=== PATIENT | female | born 2000 | race Caucasian/White ===

== ENCOUNTER 2022-08-05 22:19 | Emergency (ER) | payer MEDICAID ==
[~2022-08-05] VITALS: Ht 157.5 cm; Wt 77.3 kg
[~2022-08-05 22:19] MED LIST: CEPH-585 PO; DICY10CA18 PO; FAMO20TA8 PO; LOSA25TA41 PO; OMEP20TA43 PO; VENL150C4 PO
[2022-08-06 00:09] LABS: BASOPHILS # (AUTO) 0.1 X10'3 (0-0.2); BASOPHILS % (AUTO) 0.6 % (0-1); EOSINOPHILS # (AUTO) 0.2 X10'3 (0-0.9); EOSINOPHILS % (AUTO) 2.1 % (0-6); HEMATOCRIT 39.8 % (35.0-45.0); HEMOGLOBIN 13.7 g/dl (12.0-16.0); LYMPHOCYTES # (AUTO) 3.8 X10'3 (1.1-4.8); LYMPHOCYTES % (AUTO) 43.3 % (21-51); MEAN CORPUSCULAR HEMOGLOBIN 28.2 PG (27.0-31.0); MEAN CORPUSCULAR HGB CONC 34.3 g/dL (33.0-36.5); MEAN CORPUSCULAR VOLUME 82.3 FL (78-98); MEAN PLATELET VOLUME 7.4 FL (7.4-10.4); MONOCYTES # (AUTO) 0.7 X10'3 (0-0.9); MONOCYTES % (AUTO) 8.2 % (2-12); NEUTROPHILS % (AUTO) 45.8 % (42-75); PLATELET COUNT 318 X10'3 (140-440); RED BLOOD COUNT 4.84 X10'6 (4.20-5.60); RED CELL DISTRIBUTION WIDTH 13.7 % (11.5-14.5); WHITE BLOOD COUNT 8.8 X10'3 (4.5-11.0)
[2022-08-06 00:28] LABS: ALANINE AMINOTRANSFERASE 31 U/L (12-78); ALBUMIN 3.8 G/DL (3.4-5.0); ALKALINE PHOSPHATASE 69 IU/L (46-116); ANION GAP 8 (8-16); ASPARTATE AMINO TRANSFERASE 18 U/L (10-37); BILIRUBIN,TOTAL 0.1 MG/DL (0.1-1.0); BLOOD UREA NITROGEN 7 MG/DL (7-18); BUN/CREATININE RATIO 8.3 (6.6-38.0); CALCIUM 9.2 MG/DL (8.5-10.1); CHLORIDE 103 MMOL/L (99-107); CREATININE 0.84 MG/DL (0.40-0.90); GLUCOSE 86 MG/DL (70-104); LIPASE 118 U/L (73-393); POTASSIUM 3.5 MMOL/L (3.5-5.1); SODIUM 138 MMOL/L (135-145); TOTAL PROTEIN 7.7 G/DL (6.4-8.2); eGFR 85 ML/MIN
[2022-08-06] MEDS ORDERED: normal saline 1000ml 1,000 ML IV ONE (03:40)
[2022-08-06] MEDS ORDERED: iohexol 350MG/ML 100ml bottle IV ONE (03:53)
[2022-08-06] MEDS ORDERED: ketorolac trometh. 30mg/ml inj. IV ONE (03:55)
[2022-08-06] MEDS ORDERED: SUMAtriptan succ. 6 MG/0.5ml vial SQ ONE (03:55)
[2022-08-06 04:16] LABS: BETA HCG,QUANTITATIVE < 1.0 mIU/ml
[2022-08-06 08:37] VITALS: BP 116/82
== END 2022-08-06 08:41 | disposition still patient (30) ==
LOC: ER 22:20
DX: R10.9 Unspecified abdominal pain (principal); R11.0 Nausea; M54.9 Dorsalgia, unspecified; R51.9 Headache, unspecified; Z79.899 Other long term (current) drug therapy
CPT/HCPCS: 36415; 71275; 74174; 80053; 83690; 84702; 85025; 96361; 96372; 96374; 99285; J1885; J3030; J3490; J7030; Q9967; A6258

== ENCOUNTER 2022-12-19 22:22 | Emergency (ER) | payer MEDICAID ==
[~2022-12-19] VITALS: Ht 157.5 cm; Wt 77.3 kg
[~2022-12-19 22:22] MED LIST changes: -CEPH-585 PO
[2022-12-19 22:28] VITALS: BP 120/93
[2022-12-20] MEDS ORDERED: triamcinolone acetonide 40mg/ml inj IM ONE (00:20)
[2022-12-20] MEDS ORDERED: predniSONE 20 mg tablet PO ONE (00:20)
== END 2022-12-20 00:36 | disposition home or self-care (01) ==
LOC: ER 22:23
DX: L23.9 Allergic contact dermatitis, unspecified cause (principal); G43.909 Migraine, unspecified, not intractable, without status migrainosus; Z79.899 Other long term (current) drug therapy
CPT/HCPCS: 96372; 99283; J3301; J7512

== ENCOUNTER 2023-02-16 12:01 | Emergency (ER) | payer MEDICAID ==
[~2023-02-16] VITALS: Ht 157.5 cm; Wt 80.4 kg
[2023-02-16 12:24] VITALS: BP 114/83; PULSE 99; RESP 16; TEMP 99; O2SAT 99
[2023-02-16 12:44] LABS: CLARITY,URINE CLOUDY (Clear); COLOR,URINE YELLOW (Yellow); GLUCOSE, URINE NEGATIVE (Neg); KETONES,URINE NEGATIVE (Neg); LEUKOCYTE ESTERASE ,URINE TRACE (Neg); NITRITES, URINE NEGATIVE (Neg); OCCULT BLOOD,URINE NEGATIVE (Neg); PH,URINE 5.5 (4.8-8.0); PROTEIN,URINE NEGATIVE (Neg); URINE HCG NEGATIVE (NEG); UROBILINOGEN,URINE 0.2 E.U/dL (0.2-1.0)
[2023-02-16 12:48] LABS: UA COLLECTION TYPE CLN CATCH MIDSTREAM
[2023-02-16 12:50] LABS: MUCUS STRANDS FEW /LPF (Neg); SQUAMOUS EPITHELIAL CELL,UR MODERATE /LPF (FEW)
[2023-02-16 12:51] LABS: BACTERIA,URINE 1+ /HPF (Neg); HYALINE CASTS 0-3 /LPF (NEGATIVE); RBC,URINE 0-2 /HPF (0-2); WBC CLUMPS,URINE FEW /HPF (NEGATIVE); WBC,URINE 20-30 /HPF (0-4)
[2023-02-16] MEDS ORDERED: LIDOcaine Viscous 15ml cup MM STA (14:14)
== END 2023-02-16 14:35 | disposition home or self-care (01) ==
LOC: ER 12:02
DX: K12.0 Recurrent oral aphthae (principal); G43.909 Migraine, unspecified, not intractable, without status migrainosus; Z98.890 Other specified postprocedural states; Z79.2 Long term (current) use of antibiotics; Z79.899 Other long term (current) drug therapy; K59.09 Other constipation
CPT/HCPCS: 69200; 81001; 81025; 87088; 99283; 99284

== ENCOUNTER 2023-04-21 17:38 | Emergency (ER) | payer MEDICAID ==
[~2023-04-21] VITALS: Ht 157.5 cm; Wt 84.6 kg
[2023-04-21 17:57] VITALS: TEMP 98.3
[2023-04-21 18:20] LABS: URINE HCG NEGATIVE (NEG)
[2023-04-21 18:25] LABS: BILIRUBIN,URINE NEGATIVE (Neg); CLARITY,URINE SLIGHTLY CLOUDY (Clear); COLOR,URINE YELLOW (Yellow); GLUCOSE, URINE NEGATIVE (Neg); KETONES,URINE NEGATIVE (Neg); LEUKOCYTE ESTERASE ,URINE NEGATIVE (Neg); NITRITES, URINE NEGATIVE (Neg); OCCULT BLOOD,URINE NEGATIVE (Neg); PROTEIN,URINE NEGATIVE (Neg); UROBILINOGEN,URINE 0.2 E.U/dL (0.2-1.0)
[2023-04-21 18:39] LABS: UA COLLECTION TYPE CLN CATCH MIDSTREAM
[2023-04-21 18:40] LABS: WBC,URINE 0-4 /HPF (0-4)
[2023-04-21 18:41] LABS: BACTERIA,URINE 1+ /HPF (Neg); MUCUS STRANDS FEW /LPF (Neg); RBC,URINE 0-2 /HPF (0-2); SQUAMOUS EPITHELIAL CELL,UR FEW /LPF (FEW)
[2023-04-21 19:00] LABS: BASOPHILS # (AUTO) 0.1 X10'3 (0-0.2); BASOPHILS % (AUTO) 0.8 % (0-1); EOSINOPHILS # (AUTO) 0.4 X10'3 (0-0.9); EOSINOPHILS % (AUTO) 4.4 % (0-6); HEMATOCRIT 42.9 % (35.0-45.0); HEMOGLOBIN 14.4 g/dl (12.0-16.0); LYMPHOCYTES # (AUTO) 3.6 X10'3 (1.1-4.8); LYMPHOCYTES % (AUTO) 40.5 % (21-51); MEAN CORPUSCULAR HEMOGLOBIN 28.9 PG (27.0-31.0); MEAN CORPUSCULAR HGB CONC 33.6 g/dL (33.0-36.5); MEAN PLATELET VOLUME 7.9 FL (7.4-10.4); MONOCYTES # (AUTO) 0.6 X10'3 (0-0.9); MONOCYTES % (AUTO) 7.3 % (2-12); NEUTROPHILS # (AUTO) 4.2 X10'3 (1.8-7.7); PLATELET COUNT 289 X10'3 (140-440); RED BLOOD COUNT 4.98 X10'6 (4.20-5.60); RED CELL DISTRIBUTION WIDTH 13.5 % (11.5-14.5); WHITE BLOOD COUNT 8.9 X10'3 (4.5-11.0)
[2023-04-21 19:18] LABS: ALANINE AMINOTRANSFERASE 16 U/L (12-78); ALKALINE PHOSPHATASE 70 IU/L (46-116); ANION GAP 11 (8-16); ASPARTATE AMINO TRANSFERASE 24 U/L (10-37); BILIRUBIN,TOTAL 0.1 MG/DL (0.1-1.0); CHLORIDE 105 MMOL/L (99-107); GLUCOSE 88 MG/DL (70-104); POTASSIUM 3.4 MMOL/L (3.5-5.1); SODIUM 137 MMOL/L (135-145); TOTAL CARBON DIOXIDE 21.2 MMOL/L (24-32); TOTAL PROTEIN 7.7 G/DL (6.4-8.2)
[2023-04-21 19:27] LABS: ALBUMIN 3.7 G/DL (3.4-5.0); ALBUMIN/GLOBULIN RATIO 0.9 (1.1-1.5); BLOOD UREA NITROGEN 11 MG/DL (7-18); BUN/CREATININE RATIO 15.7 (10.0-20.0); CALCIUM 8.9 MG/DL (8.5-10.1); eCRCL 99 ML/MIN; eGFR > 90 ML/MIN
[2023-04-21] MEDS ORDERED: acetaminophen 325mg tablet PO ONE (23:55)
[2023-04-21] MEDS ORDERED: ketorolac trometh. 30mg/ml inj. IV ONE (23:55)
[2023-04-21] MEDS ORDERED: ondansetron 4mg rapidly disintigrating tab PO ONE (23:55)
[2023-04-21] MEDS ORDERED: dicyclomine 10mg/ml 2ml ampule IM ONE (23:55)
[2023-04-21] MEDS ORDERED: potassium Cl 20 mEq SR tablet PO STA (23:58)
[2023-04-22] MEDS ORDERED: ONDA8TAB13 PO (01:05)
[2023-04-22] MEDS ORDERED: DICY10CA88 PO (01:05)
[2023-04-22 01:30] VITALS: BP 107/61; PULSE 80; RESP 16; O2SAT 97
== END 2023-04-22 01:50 | disposition home or self-care (01) ==
LOC: ER 17:39
DX: G89.29 Other chronic pain (principal); R10.9 Unspecified abdominal pain; K59.00 Constipation, unspecified; G43.909 Migraine, unspecified, not intractable, without status migrainosus; Z79.899 Other long term (current) drug therapy
CPT/HCPCS: 36415; 80053; 81001; 81025; 83690; 85025; 96372; 96374; 99284; J0500; J1885; J7030; A6250

== ENCOUNTER 2024-05-07 05:44 | Day surgery (SDC) | payer BC, MEDICAID ==
[2024-04-30 14:37] LABS: BASOPHILS % (AUTO) 0.5 % (0-1); EOSINOPHILS # (AUTO) 0.1 X10'3 (0-0.9); EOSINOPHILS % (AUTO) 1.9 % (0-6); LYMPHOCYTES # (AUTO) 2.8 X10'3 (1.1-4.8); LYMPHOCYTES % (AUTO) 38.3 % (21-51); MEAN CORPUSCULAR HEMOGLOBIN 28.8 PG (27.0-31.0); MEAN CORPUSCULAR HGB CONC 33.6 g/dL (33.0-36.5); MEAN CORPUSCULAR VOLUME 85.8 FL (78-98); MEAN PLATELET VOLUME 7.5 FL (7.4-10.4); MONOCYTES # (AUTO) 0.5 X10'3 (0-0.9); MONOCYTES % (AUTO) 7.3 % (2-12); NEUTROPHILS # (AUTO) 3.8 X10'3 (1.8-7.7); PRE OP HEMATOCRIT 42.6 % (35.0-45.0); PRE OP HEMOGLOBIN 14.3 g/dL (12.0-16.0); PRE OP PLATELET COUNT 311 X10'3 (140-440); PRE OP WHITE BLOOD COUNT 7.3 10'3 (4.8-10.8); RED BLOOD COUNT 4.96 X10'6 (4.20-5.60); RED CELL DISTRIBUTION WIDTH 13.8 % (11.5-14.5)
[2024-04-30 14:59] LABS: ALBUMIN 3.8 G/DL (3.4-5.0); ALKALINE PHOSPHATASE 64 IU/L (46-116); BLOOD UREA NITROGEN 11 MG/DL (7-18); CALCIUM 9.1 MG/DL (8.5-10.1); PRE OP ALT 13 U/L (30-65); PRE OP AST 12 U/L (10-37)
[2024-04-30 15:04] LABS: ALBUMIN/GLOBULIN RATIO 0.9 (1.1-1.5); BUN/CREATININE RATIO 15.3 (10.0-20.0); CHLORIDE 103 MMOL/L (99-107); CREATININE 0.72 MG/DL (0.40-0.90); PRE OP ANION GAP 4 (8-16); PRE OP BILIRUB, TOTAL 0.3 MG/DL (0.0-1.0); PRE OP GLUCOSE 82 MG/DL (70-104); PRE OP POTASSIUM 4.1 MMOL/L (3.4-5.1); PRE OP SODIUM 136 MMOL/L (135-145); TOTAL CARBON DIOXIDE 28.6 MMOL/L (24-32); eGFR > 90 ML/MIN
[2024-04-30 15:42] LABS: HCG SERUM QL NEGATIVE
[~2024-05-07] VITALS: Ht 157.5 cm; Wt 77.6 kg
[2024-05-07] VITALS (17 sets, daily range): BP systolic 86–118; BP diastolic 60–81; PULSE 75–97; RESP 14–21; TEMP 98.2; O2SAT 94–100
[~2024-05-07 05:44] MED LIST changes: +ATEN25TA PO; +CETI10TA14 PO; -DICY10CA18 PO; -FAMO20TA8 PO; -LOSA25TA41 PO; +MODA200T48 PO; -OMEP20TA43 PO; +PANT40TA54 PO; +PRUC2TAB PO; -VENL150C4 PO; +VENL150C5 PO
[2024-05-07] MEDS ORDERED: LIDOcaine 1% (10mg/ml) 2ml vial ONE (06:24)
[2024-05-07] MEDS: famotidine 20mg tablet PO ONE (06:32)
[2024-05-07] MEDS: DOCUMENT DATE & TIME OF BETA-BLOCKER PO ONE (06:33)
[2024-05-07] MEDS: ringers solution, lacted 1,000 ML IV SCH (06:33)
[2024-05-07] MEDS: acetaminophen 325mg tablet PO ONE (06:33)
[2024-05-07] MEDS ORDERED: methylene blue (5mg/ml) 50mg/10ml ampul IV ONE (06:52)
[2024-05-07] MEDS ORDERED: BUPIVAcaine 2.5mg/ml inj 50ml vial (contains preservative) ONE (06:52)
[2024-05-07] MEDS ORDERED: ROPIVAcaine 0.5% (5mg/ml) 30ml vial ONE (06:52)
[2024-05-07] MEDS ORDERED: propofol inj 20 ML IV ONE (07:31)
[2024-05-07] MEDS ORDERED: midazolam 1 mg/ML 2ml injection ONE (07:31)
[2024-05-07] MEDS ORDERED: fentaNYL/PF 50MCG/1 ML 2ML syringe ONE ×2 (07:31→09:09)
[2024-05-07] MEDS ORDERED: rocuronium 10mg/ml inj IV ONE (07:32)
[2024-05-07] MEDS ORDERED: sevoflurane 250ml liquid IH ONE (07:59)
[2024-05-07 08:40] LABS: PREOP URINE HCG NEGATIVE (NEGATIVE)
[2024-05-07] MEDS ORDERED: dexamethasone sod phosphate 4mg/ml inj. ONE (08:57)
[2024-05-07] MEDS: BUPIVAcaine 2.5mg/ml inj 50ml vial (contains preservative) SQ ONE (09:13)
[2024-05-07] MEDS: ROPIVAcaine 0.5% (5mg/ml) 30ml vial IJ ONE (09:34)
[2024-05-07] MEDS: methylene blue (5mg/ml) 50mg/10ml ampul IV ONE (09:34)
[2024-05-07] MEDS ORDERED: ondansetron/PF 4mg/2ml inj ONE (09:39)
[2024-05-07] MEDS ORDERED: sugammadex 200mg/2ml injection IV ONE (09:44)
[2024-05-07] MEDS ORDERED: acetaminophen 1,000mg/100ml IV 100 ML IV ONE (09:53)
[2024-05-07] MEDS ORDERED: ondansetron/PF 4mg/2ml inj IV PRN (10:05)
[2024-05-07] MEDS ORDERED: morphine 4 MG/ML inj SYRINge IV PRN (10:05)
[2024-05-07] MEDS ORDERED: proCHLORperazine 10 MG/2 ml inj IV PRN (10:05)
[2024-05-07] MEDS ORDERED: ringers solution, lacted 1,000 ML IV SCH (10:05)
[2024-05-07] MEDS ORDERED: morphine 2 MG/ML inj. syringe IV PRN (10:05)
[2024-05-07] MEDS ORDERED: meperidine/PF 25mg/ml syringe IV PRN ×2 (10:05)
[2024-05-07] MEDS: ketorolac trometh 30MG/ML vial 30 MG/ML VIAL IV ONE (10:26)
[2024-05-07] MEDS: meperidine/PF 25mg/ml syringe IV PRN (10:29)
== END 2024-05-07 12:13 | disposition home or self-care (01) ==
LOC: PAS 05:44
PROVIDERS: ATTEND Obstetrics & Gynecology
DX: N94.6 Dysmenorrhea, unspecified (principal); R10.2 Pelvic and perineal pain; I10 Essential (primary) hypertension
CPT/HCPCS: 36415; 52260; 58555; 58662; 80053; 81025; 82948; 84703; 85025; 93005; J0131; J1100; J1885; J2175; J2250; J2405; J2704; J2795; J3010; J3490; J7030; J7120; Q9968; Z7506; Z7508; Z7512; A4355; A4618; A7000

== ENCOUNTER 2024-06-02 18:48 | Emergency (ER) | payer BC ==
[~2024-06-02] VITALS: Ht 157.5 cm; Wt 77.3 kg
[2024-06-02 18:52] VITALS: TEMP 99.1
[2024-06-02 19:13] LABS: BASOPHILS # (AUTO) 0.1 X10'3 (0-0.2); BASOPHILS % (AUTO) 0.4 % (0-1); EOSINOPHILS # (AUTO) 0.3 X10'3 (0-0.9); EOSINOPHILS % (AUTO) 2.5 % (0-6); HEMATOCRIT 41.1 % (35.0-45.0); HEMOGLOBIN 13.8 g/dl (12.0-16.0); LYMPHOCYTES % (AUTO) 29.8 % (21-51); MEAN CORPUSCULAR HEMOGLOBIN 28.3 PG (27.0-31.0); MEAN CORPUSCULAR HGB CONC 33.5 g/dL (33.0-36.5); MEAN CORPUSCULAR VOLUME 84.5 FL (78-98); MEAN PLATELET VOLUME 7.5 FL (7.4-10.4); NEUTROPHILS # (AUTO) 8.2 X10'3 (1.8-7.7); NEUTROPHILS % (AUTO) 60.3 % (42-75); PLATELET COUNT 302 X10'3 (140-440); RED BLOOD COUNT 4.87 X10'6 (4.20-5.60); RED CELL DISTRIBUTION WIDTH 13.1 % (11.5-14.5); WHITE BLOOD COUNT 13.6 X10'3 (4.5-11.0)
[2024-06-02 19:28] LABS: ALANINE AMINOTRANSFERASE 20 U/L (12-78); ALBUMIN 3.6 G/DL (3.4-5.0); ALBUMIN/GLOBULIN RATIO 0.9 (1.1-1.5); ANION GAP 13 (8-16); ASPARTATE AMINO TRANSFERASE 12 U/L (10-37); BILIRUBIN,TOTAL 0.5 MG/DL (0.1-1.0); BLOOD UREA NITROGEN 11 MG/DL (7-18); BUN/CREATININE RATIO 13.1 (10.0-20.0); CALCIUM 8.6 MG/DL (8.5-10.1); CHLORIDE 107 MMOL/L (99-107); CREATININE 0.84 MG/DL (0.40-0.90); GLUCOSE 100 MG/DL (70-104); POTASSIUM 3.8 MMOL/L (3.5-5.1); SODIUM 143 MMOL/L (135-145); TOTAL CARBON DIOXIDE 22.9 MMOL/L (24-32); TOTAL PROTEIN 7.5 G/DL (6.4-8.2); eCRCL 82 ML/MIN; eGFR 83 ML/MIN
[2024-06-02 19:29] LABS: ALKALINE PHOSPHATASE 72 IU/L (46-116); LIPASE 40 U/L (16-77)
[2024-06-02 20:24] LABS: URINE HCG NEGATIVE (NEG)
[2024-06-02] MEDS: normal saline 1000ml 1,000 ML IV ONE (20:31)
[2024-06-02] MEDS: HYDROcodone/acetaminophen 10/325mg tab PO ONE (20:33)
[2024-06-02] MEDS: metoclopramide 5 mg/ml inj IV ONE (20:34)
[2024-06-02] MEDS: ketorolac trometh 30MG/ML vial 30 MG/ML VIAL IV ONE (20:34)
[2024-06-02] MEDS: diphenhydrAMINE 50 mg/ml inj IV ONE (20:34)
[2024-06-02 20:35] LABS: BILIRUBIN,URINE NEGATIVE (Neg); CLARITY,URINE CLEAR (Clear); COLOR,URINE YELLOW (Yellow); GLUCOSE, URINE NEGATIVE (Neg); KETONES,URINE TRACE mg/dl (Neg); LEUKOCYTE ESTERASE ,URINE SMALL (Neg); NITRITES, URINE NEGATIVE (Neg); OCCULT BLOOD,URINE MODERATE (Neg); PH,URINE 5.5 (4.8-8.0); PROTEIN,URINE NEGATIVE (Neg); UROBILINOGEN,URINE 0.2 E.U/dL (0.2-1.0)
[2024-06-02 20:41] LABS: URINE AMPHETAMINE SCREEN NEGATIVE (Neg); URINE BARBITUATE SCREEN NEGATIVE (Neg); URINE BENZODIAZEPINES SCREEN NEGATIVE (Neg); URINE CANNABINOID SCREEN NEGATIVE (Neg); URINE COCAINE SCREEN NEGATIVE (Neg); URINE METHADONE SCREEN NEGATIVE (Neg); URINE OPIATE SCREEN POSITIVE (Neg); URINE PHENCYCLIDINE SCREEN NEGATIVE (Neg)
[2024-06-02 20:53] LABS: UA COLLECTION TYPE CLN CATCH MIDSTREAM
[2024-06-02 20:54] LABS: BACTERIA,URINE 1+ /HPF (Neg); RBC,URINE 20-50 /HPF (0-2); SQUAMOUS EPITHELIAL CELL,UR MANY /LPF (FEW)
[2024-06-02 21:55] VITALS: BP 103/64; PULSE 93; RESP 14; O2SAT 100
[2024-06-02] MEDS ORDERED: HYDR-3965 PO (22:25)
[2024-06-02] MEDS ORDERED: FLO0.4C PO (22:25)
[2024-06-04] MEDS ORDERED: HYDR-3965 PO (16:25)
== END 2024-06-02 22:34 | disposition home or self-care (01) ==
LOC: ER 18:49
DX: N20.0 Calculus of kidney (principal); G43.909 Migraine, unspecified, not intractable, without status migrainosus; Z98.890 Other specified postprocedural states; Z79.899 Other long term (current) drug therapy
CPT/HCPCS: 36415; 74176; 80053; 80305; 81001; 81025; 83690; 85025; 96361; 96374; 96375; 99285; J1200; J1885; J2765; J7030